=== PATIENT | female | born 1970 | race Caucasian/White ===

== ENCOUNTER 2019-12-14 16:55 | Emergency (ER) | payer SELFPAY ==
[2019-12-14] MEDS ORDERED: HYDROCODONE/ACETAMINOPHEN 5-325 MG (6 TAB/ER DISP) PO PRN (17:43)
--- NOTE | 2019-12-14 17:43 | ER Document Report ---
ED Medical Screen (RME) - General Chief Complaint: Leg Pain Stated Complaint: LEFT LEG PAIN Time Seen by Provider: 12/14/19 17:35 - HPI Notes: 12/14/19 17:36 49 year old female present today with complaints of left knee with numbness and tingling, increased pain after she stood up and heard a snap. pt took a tylenol #3 Physical Exam - Vital signs Vitals: Temp Pulse Resp BP Pulse Ox 98.8 F 64 16 125/71 100 12/14/19 17:09 12/14/19 17:09 12/14/19 17:09 12/14/19 17:09 12/14/19 17:09 Course - Vital Signs Vital signs: Temp Pulse Resp BP Pulse Ox 98.8 F 64 16 125/71 100 12/14/19 17:09 12/14/19 17:09 12/14/19 17:09 12/14/19 17:09 12/14/19 17:09
[2019-12-14] MEDS ORDERED: KETOROLAC TROMETHAMINE 60 MG/2 ML SDV IM ONE (17:44)
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
--- NOTE | 2019-12-14 18:29 | RADIOLOGY REPORT (SQ) ---
EXAM DESCRIPTION: KNEE LEFT 4 VIEW IMAGES COMPLETED DATE/TIME: 12/14/2019 4:58 pm REASON FOR STUDY: severe L knee pain today, stood, heard a "snap" . Unable to straighten knee. COMPARISON: None. NUMBER OF VIEWS: Four views. TECHNIQUE: AP, lateral, and both oblique radiographic images acquired of the left knee. LIMITATIONS: None. FINDINGS: MINERALIZATION: Normal. BONES: No acute fracture or dislocation. No worrisome bone lesions. JOINT: No effusion. SOFT TISSUES: No soft tissue swelling. No radio-opaque foreign body. OTHER: No other significant finding. IMPRESSION: No radiographic abnormality of the left knee. TECHNICAL DOCUMENTATION: JOB ID: [id number] 2010 [employer]- All Rights Reserved Reading location - IP/workstation name: [email or web address]
[2019-12-14 19:29] VITALS: BP 135/77
== END 2019-12-14 19:27 | disposition home or self-care (01) ==
LOC: ER 16:55
DX: R20.2 Paresthesia of skin (principal); M25.562 Pain in left knee
CPT/HCPCS: 99284; 96372; 73564; J1885